=== PATIENT | male | born 1965 | race Caucasian/White ===

== ENCOUNTER 2016-10-14 12:21 | Emergency (ER) | payer OTHER ==
[~2016-10-14] VITALS: Ht 175.3 cm; Wt 109.1 kg
[2016-10-14 12:24] VITALS: BP 145/88; PULSE 89; RESP 18; O2SAT 98
--- NOTE | 2016-10-14 12:53 | ED.REPORT ---
HPI-General Illness Date of Service Oct 14, 2016 ED Provider: Josh Cruz MD Pt is a 51 y/o male w/ a hx of diverticulitis presenting to the ED c/o darkened urine onset 3 days ago. His urine became dark yellow and he thought he may be dehydrated and subsequently drank a large amount of water which resulted in no change. He was placed on antibiotics for diverticulitis 2 weeks ago and finished the course 1 week ago. He c/o associated mild mid-left abdominal pain, generalized itching sensation, jaundiced skin color. He has no history of liver disease and his last alcoholic drink was 3 months ago. Pt denies flank pain, dysuria, urinary frequency. Nursing Notes Stated Complaint: SICK Chief Complaint: Male Abdominal Pain Nursing Notes Reviewed: Yes Allergies: Coded Allergies: No Known Allergies (Unverified , 10/14/16) General Time Seen by MD: 12:52 Chief Complaint Other (darkened urine) Hx Obtained From: Patient Arrived By: Walk-in Sudden in Onset?: No Onset Occurred: 3 days ago Symptom Duration: Since onset Location: : Abdomen Quality: Painful Radiation: : Does not radiate Severity: Current: Mild Severity: Maximum: Mild Past Medical History Past Medical History Hx diverticulitis Hypertension Past Surgical History Left knee Smoking History Unknown if Ever Smoker Social History Alcohol Use: Denies alcohol use Ambulatory Status Independent Review of Systems +darkened urine, jaundice Full Review of Systems Constitutional: Denies: Chills, Fever Respiratory: Denies: Non-productive cough, Shortness of breath Cardiovascular: Denies: Chest pain, Dyspnea on exertion GI: Reports: Abdominal pain, Denies: Nausea, Vomiting Male: Denies Dysuria, Denies Flank pain, Denies Urinary frequency Complete sys rev & neg: except as marked. Physical Exam Vital Signs Vital Signs Date Time Temp Pulse Resp B/P Pulse Ox O2 Delivery O2 Flow Rate FiO2 10/14/16 12:24 36.2 89 18 145/88 98 Room Air Initial VS: Reviewed, Vital signs normal ENT: Mucous membranes moist, Conjunctiva normal, No scleral icterus Neck: Supple, Full range of motion Respiratory: Breath sounds normal, Clear to auscultation, No respiratory distress Cardiovascular: Regular rate & rhythm, Heart sounds normal, Intact distal pulses Extremities: Vascular intact, Neuro intact, No swelling, No tenderness Skin: Warm, Dry, No cyanosis Neurologic: Alert, Oriented, Nonfocal Psychiatric: Mood/affect normal, Behavior normal, Normal thought content General/Constitutional: Awake, Alert, No acute distress, Cooperative, Not toxic appearing Appearance / Presentation: Positive: Icteric Head / Eyes: Atraumatic, Normocephalic Conjunctiva / Sclera: Positive: Icteric Abdomen: Atraumatic, Soft, Non-tender, No guarding, No rebound, No distention, No palpable mass Tenderness/Guarding/Rebound: Negative: Tender RUQ... Interpretation & Diagnostics Lab Results Interpretation Result Diagram: 10/14/16 1305 10/14/16 1305 Test 10/14/16 13:00 10/14/16 13:05 Urine Color Yellow (YELLOW) Urine Appearance Clear (CLEAR,HAZY) Urine pH 7.5 (5.0-8.0) Urine Specific [place] 1.010 (1.003-1.035) Urine Protein Negativemg/dL (NEG,TRACE) Urine Glucose (UA) Negativemg/dL (NEGATIVE) Urine Ketones Negativemg/dL (NEGATIVE) Urine Occult Blood Negative (NEGATIVE) Urine Nitrite Negative (NEGATIVE) Urine Bilirubin Moderate (NEGATIVE) Urine Ictotest Positive (Negative) Urine Urobilinogen 2.0mg/dL (NORMAL) Urine Leukocyte Esterase Negative (NEGATIVE) Urine RBC 0-2/hpf (0-2) Urine WBC 0-5/hpf (0-5) Urine Epithelial Cells Occasional/hpf (NONE-MOD) Urine Crystals None seen (NONE SEEN) Urine Bacteria Few/hpf (NONE-FEW) Urine Hyaline Casts None/lpf (NONE) Urine Granular Casts None seen (NONE SEEN) Urine Waxy Casts None seen (NONE SEEN) Urine Red Blood Cell Casts None seen (NONE SEEN) Urine White Blood Cell Casts None seen (NONE SEEN) Urine Mucus None seen (None Seen) Urine Trichomonas None seen (NONE SEEN) Urine Yeast None (NONE SEEN) Urinalysis Comment None Urine Culture Reflexed Not indicated White Blood Count 5.7th/mm3 (3.8-10.1) Red Blood Count 5.59mil/mm3 (4.40-5.80) Hemoglobin 16.3g/dL (13.8-17.2) Hematocrit 45.4% (41.0-50.0) Mean Corpuscular Volume 81.2fL (81-100) Mean Corpuscular Hemoglobin 29.2pg (27.0-35.0) Mean Corpuscular Hemoglobin Concent 35.9% (32.0-37.0) Red Cell Distribution Width 14.9% (12.3-15.4) Platelet Count 283bil/L (150-400) Neutrophils (%) (Auto) 63.2% (40-74) Lymphocytes (%) (Auto) 19.9% (14-46) Monocytes (%) (Auto) 10.5% (4-12) Eosinophils (%) (Auto) 5.4% (0-5) Basophils (%) (Auto) 0.7% (0-3) Prothrombin Time 9.5sec (8.1-12.5) Prothromb Time International Ratio 0.89ratio Sodium Level 132mEq/L (134-144) Potassium Level 3.8mEq/L (3.5-5.2) Chloride Level 90mEq/L (97-108) Carbon Dioxide Level 19mmol/L (18-29) Blood Urea Nitrogen 22mg/dL (6-24) Creatinine 0.70mg/dL (0.76-1.27) Estimat Glomerular Filtration Rate 126mL/min (>59) Glucose Level 169mg/dL (60-99) Calcium Level 10.3mg/dL (8.5-10.1) Total Bilirubin 7.8mg/dL (0.0-1.2) Aspartate Amino Transf (AST/SGOT) 626U/L (0-50) Alanine Aminotransferase (ALT/SGPT) 1049U/L (0-44) Alkaline Phosphatase 431U/L (25-150) Total Protein 8.0g/dL (6.4-8.4) Albumin 4.2g/dL (3.4-5.0) Hold Guerrero Top Tube Received (Received) Re-Eval/Medical Decision Med Decision/Clinical Course unit technician reports no overt ductal dilatation or mass identified. Of course I have significant concern for this gentleman for his "painless jaundice" and trust that GI will evaluate this thoroughly and completely in the coming days. Counseled Regarding: Diagnosis, Lab results, Need for follow-up, When/why to return to ED Discharge & Departure Primary Impression: Jaundice Disposition: Home Discharge Condition All VS Reviewed: Yes Condition: Stable Additional Instructions: There are many possible causes for the jaundice that you have. Follow-up with Dr. Lyons from gastroenterology. His office should be contacting you in the next day or 2 for an appointment early next week. Return to the emergency department if you have fever or severe abdominal pain. Referrals: Amado Coello MD (PCP) Aracelis Attestation Portions of this note were transcribed by Harvey Mckay. I, Dr. Cruz, personally performed the history, physical exam and medical decision-making; I reviewed and confirmed the accuracy of the information in the transcribed note. Signed by Aracelis Lucero, 10/14/16 - 1400 copies to: Amado Coello MD, Kirk H MD Oct 14, 2016 12:53 HARVEY MCKAY Oct 14, 2016 13:02
[2016-10-14 13:14] LABS: BASOPHILS % (AUTO) 0.7 % (0-3); EOSINOPHILS % (AUTO) 5.4 % (0-5); MONOCYTES % (AUTO) 10.5 % (4-12); Mean Corpuscular Hemoglobin 29.2 pg (27.0-35.0); Mean Corpuscular Volume 81.2 fL (81-100); NEUTROPHILS % (AUTO) 63.2 % (40-74); Platelet Count 283 bil/L (150-400)
[2016-10-14 13:29] LABS: INR 0.89 ratio
[2016-10-14 13:31] LABS: APPEARANCE,URINE CLEAR (CLEAR,HAZY); COLOR,URINE YELLOW (YELLOW); OCCULT BLOOD,URINE NEGATIVE (NEGATIVE); PH,URINE 7.5 (5.0-8.0)
[2016-10-14 13:32] LABS: ICTOTEST,URINE POSITIVE (Negative)
[2016-10-14 16:33] VITALS: BP 138/86; PULSE 85; RESP 18; O2SAT 98
--- NOTE | 2016-10-14 16:55 | DRSVH ---
PROCEDURE: US ABDOMEN ([id number]) INDICATIONS: painless jaundice TECHNIQUE: Real-time scanning was performed of the abdominal and retroperitoneal organs, with image documentatio n. COMPARISON: [facility], CT, CT ABD PELVIS W CON, 09/07/2016, 8:49. FINDINGS: Liver: Liver is normal in size and homogeneous in echotexture. Gallbladder: Gallbladder is contracted. No gallstones visualized. The gallbladder wall thickness is n ormal. No pericholecystic fluid collection or sonographic Richard sign. Biliary ducts: Intrahepatic bile ducts are non-dilated. Extrahepatic bile duct caliber measures 3.1 mm. Normal is 6-7 mm or less in diameter, or 10 mm or less post-cholecystectomy. Pancreas: Pancreas obscured by overlying bowel gas. Spleen: Spleen is normal in size and homogeneous in echotexture. Kidneys: Kidneys are normal in size and echotexture. Right kidney measures 13.8 cm long; left kidne y measures 13.7 cm long. No hydronephrosis or nephrolithiasis. No solid masses. There is a 1.2 cm simple cyst in the superior pole of the right kidney. Aorta: Visualized aorta is normal in caliber at less than 3 cm. Iliacs: Proximal common iliac arteries are normal in caliber at less than 2.5 cm. IVC: Intrahepatic inferior vena cava is patent. Miscellaneous: No free abdominal fluid. IMPRESSION: 1. No ultrasound findings to explain painless jaundice. 2. A small simple renal cyst in the superior pole of the right kidney. Dictated by: Osmar Jaimes M.D. on 10/14/2016 at 16:44 Approved by: Osmar Jaimes M.D. on 10/14/2016 at 16:54
== END 2016-10-14 16:33 | disposition home or self-care (01) ==
LOC: SED 12:21
DX: R17 Unspecified jaundice (principal); I10 Essential (primary) hypertension